=== PATIENT | female | born 1985 | race Caucasian/White ===

== ENCOUNTER 2017-10-16 11:11 | Outpatient (CLI) | payer BC ==
[2017-10-16 12:00] LABS: #Basophils 0.1 thou/uL (0.0-0.2); #Eosinphils 0.1 thou/uL (0.0-0.7); #Lymphocytes 1.5 thou/uL (1.20-3.40); #Monocytes 0.6 thou/uL (0.11-0.59); #Neutrophils 6.4 thou/uL (1.40-6.50); %Basophils 0.7 % (0.0-1.0); %Eosinophils 0.8 % (0.0-10.0); %Monocytes 7.3 % (0.0-10.0); Hematocrit 41.9 % (36.0-47.0); Mean Platelet Volume 7.3 fL (7.4-10.4); Red Blood Cell (RBC) Count 4.29 mill/uL (4.20-5.40); White Blood Cell (WBC) Count 8.7 thou/uL (4.8-10.8)
== END 2017-10-16 11:12 | disposition home or self-care (01) ==
LOC: LABBT 11:11
PROVIDERS: ATTEND Surgery
DX: R22.0 Localized swelling, mass and lump, head (principal); Z01.812 Encounter for preprocedural laboratory examination
CPT/HCPCS: 36415; 80053; 80061; 82248; 82306; 82607; 82746; 84425; 84443; 85027

== ENCOUNTER 2017-10-17 11:08 | Day surgery (SDC) | payer BC ==
[2017-10-16 11:27] VITALS: BMI 25.0
[2017-10-17] MEDS ORDERED: Midazolam HCl 2 mg/2 ml Vial ONE ×2 (11:40→11:49)
[2017-10-17] MEDS ORDERED: Fentanyl 100 MCG/2 ML VIAL ONE ×2 (11:40→13:04)
[2017-10-17] MEDS ORDERED: Bupivacaine/Epinephrine 0.25% 30 ML VIAL ONE (11:47)
[2017-10-17] MEDS ORDERED: CEFAZOLIN/Water 2 GM/20 ML SYRINGE ONE (11:49)
[2017-10-17] MEDS ORDERED: Bacitracin Zinc Ointment 30 gm TUBE ONE (12:28)
--- NOTE | 2017-10-17 12:48 | OP ---
PREOPERATIVE DIAGNOSIS: Subcutaneous nodule, right posterior scalp and left elbow area. PROCEDURE PERFORMED: Excisional biopsy. INDICATIONS: The patient is a 32-year-old female who has these two nodules. She has extreme anxiety and did not wish to have it done in the office because of her anxiety. FINDINGS: A 5 mm benign appearing nodules. PROCEDURE IN DETAIL: After informed consent was obtained, the patient was taken to the operating brielle m and given general mask anesthesia, placed in the supine position. Her scalp and elbow were prepped and draped in the usual fashion. Local anesthesia with 0.5% Marcaine. A linear incision was perfor med over the scalp nodule, it was excised and sent to pathology for further analysis. The skin close d with a vertical mattress of 3-0 Prolene. Then, on her elbow, local was infiltrated. A longitudina l incision performed. The nodule excised and sent to pathology. Skin closed with interrupted 4-0 Vi cryl. Dermabond applied. The patient tolerated the procedure well and transferred to recovery in go od condition. Sponge and needle count verified correct x2.
[2017-10-17] MEDS ORDERED: Promethazine HCl 25 MG/ML VIAL ONE (13:53)
[2017-10-17] MEDS ORDERED: Propofol 200 MG/20 ML VIAL ONE (16:34)
[2017-10-17] MEDS ORDERED: Lidocaine 1% PF 5 ML VIAL ONE (16:34)
[2017-10-17] MEDS ORDERED: Dexamethasone 20 MG/5 ML VIAL ONE (16:34)
[2017-10-17] MEDS ORDERED: Ondansetron HCl/PF 4 MG/2 ML Vial ONE (16:34)
== END 2017-10-17 14:29 | disposition home or self-care (01) ==
LOC: SDC 11:08
PROVIDERS: ATTEND Surgery
PROC: 0JBH0ZZ Excision of Left Lower Arm Subcutaneous Tissue and Fascia, Open Approach (ICD-10-PCS; principal; 2017-10-17)
PROC: 0JB00ZZ Excision of Scalp Subcutaneous Tissue and Fascia, Open Approach (ICD-10-PCS; principal; 2017-10-17)
DX: D17.22 Benign lipomatous neoplasm of skin and subcutaneous tissue of left arm (principal); R22.0 Localized swelling, mass and lump, head; F41.9 Anxiety disorder, unspecified; F17.210 Nicotine dependence, cigarettes, uncomplicated; I10 Essential (primary) hypertension; E66.01 Morbid (severe) obesity due to excess calories; Z68.25 Body mass index [BMI] 25.0-25.9, adult; Z98.890 Other specified postprocedural states; Z90.49 Acquired absence of other specified parts of digestive tract; Z79.899 Other long term (current) drug therapy
CPT/HCPCS: 88304; 96374; J1100; J2001; J2250; J2405; J2550; J2704; J3010

== ENCOUNTER 2018-02-05 07:27 | Emergency (ER) | payer BC, SELFPAY ==
[2018-02-05 08:28] LABS: #Eosinphils 0.1 thou/uL (0.0-0.7); #Lymphocytes 1.4 thou/uL (1.20-3.40); #Neutrophils 12.5 thou/uL (1.40-6.50); %Basophils 0.3 % (0.0-1.0); %Eosinophils 0.8 % (0.0-10.0); %Lymphocytes 9.3 % (21.0-51.0); %Monocytes 6.6 % (0.0-10.0); Hemoglobin 13.5 g/dL (12.0-16.0); Mean Corpuscular HGB CONC 33.9 g/dL (32.0-36.0); Mean Corpuscular Hemoglobin 32.9 pg (27.0-31.0); Mean Platelet Volume 7.4 fL (7.4-10.4); Platelet Count 222 thou/uL (130-400); RBC Distribution Width 11.7 % (11.5-14.5); Red Blood Cell (RBC) Count 4.12 mill/uL (4.20-5.40)
[2018-02-05 08:41] LABS: ALT (SGPT) 14 U/L (8-55); AST (SGOT) 13 U/L (5-34); Albumin 4.1 g/dL (3.5-5.0); Alkaline Phosphatase 61 U/L (40-150); Anion Gap 10 mmol/L (10-20); BUN (Urea Nitrogen) 6 mg/dL (7.0-18.7); Bilirubin, Total 0.3 mg/dL (0.2-1.2); Calc. Creatinine Clearance 0 mL/min (70-130); Calcium 9.9 mg/dL (7.8-10.44); Carbon Dioxide 28 mmol/L (22-29); Chloride 103 mmol/L (98-107); Estimated GFR-MDRD Greater than 90; Globulin 2.9 g/dL (2.4-3.5); Glucose 91 mg/dL (70-105); Potassium 3.7 mmol/L (3.5-5.1); Sodium 137 mmol/L (136-145)
[2018-02-05] MEDS ORDERED: Ondansetron ODT 8 MG TAB ONE (09:42)
[2018-02-05] MEDS ORDERED: Ketorolac Tromethamine 30 MG/ML VIAL ONE (09:47)
[2018-02-05] MEDS ORDERED: Doxycycline 100 MG CAP PO SCH (10:30)
== END 2018-02-05 10:27 | disposition home or self-care (01) ==
LOC: ERS 07:27
DX: K11.20 Sialoadenitis, unspecified (principal); D64.9 Anemia, unspecified; I10 Essential (primary) hypertension
CPT/HCPCS: 36415; 80053; 83605; 85025; 87040; 96361; 96374; J1885